=== PATIENT | male | born 1945 | race Caucasian/White ===

== ENCOUNTER 2024-09-28 09:49 | Emergency (ER) | payer OTHER ==
[~2024-09-28] VITALS: Ht 175.3 cm; Wt 92.7 kg
[2024-09-28] MEDS ORDERED: HOME MED LIST COMPLETE! XX SCH (11:15)
[2024-09-28] MEDS: PERCOCET 5MG/325MG TAB PO ONE (11:34)
[2024-09-28] MEDS: LIDOCAINE 5% (LIDODERM) PATCH TD ONE (11:34)
[2024-09-28] MEDS ORDERED: OXYC1TAB23 PO (11:35)
[2024-09-28] MEDS ORDERED: LIDO5DIS41 TD (11:36)
[2024-09-28 11:55] VITALS: BP 173/88; TEMP 98; O2SAT 96
== END 2024-09-28 12:04 | disposition home or self-care (01) ==
LOC: M ED 09:49
DX: R55 Syncope and collapse (principal); I49.9 Cardiac arrhythmia, unspecified; I44.0 Atrioventricular block, first degree; I48.91 Unspecified atrial fibrillation; I45.81 Long QT syndrome; S32.020A Wedge compression fracture of second lumbar vertebra, initial encounter for closed fracture; Y92.9 Unspecified place or not applicable; Y93.9 Activity, unspecified; Y99.9 Unspecified external cause status; F10.10 Alcohol abuse, uncomplicated; Z79.899 Other long term (current) drug therapy; Z53.9 Procedure and treatment not carried out, unspecified reason